=== PATIENT | female | born 1950 | race Caucasian/White ===

== ENCOUNTER 2024-03-18 13:15 | Outpatient (AMB) | payer MEDICARE, OTHER, SELFPAY ==
--- NOTE | 2024-03-18 13:20 | A.OFFVIS_ITS ---
Vital Signs 03/18/24 13:24 Height 5 ft 5 in Weight 237 lb BMI 39.4 BP 130/82 Blood Pressure Location Rt brachial Position Sitting Intake Visit Reasons: ENP-Suspected Sleep Apnea Intake Note: Patient presents for suspected MYLES. Patient does not have any MYLES symptoms, daughter thinks she should have test done due to family history of apnea Allergies doxycycline [From Vibramycin] Allergy (Unknown, Verified 03/18/24 13:25) Unknown Medication List - Last Reconciled 03/18/24 by ALLYSON Diamond aspirin 81 mg PO DAILY atenolol mg PO atorvastatin mg PO clonidine HCl mg PO clopidogrel mg PO irbesartan mg PO sertraline 25 mg PO DAILY tramadol 50 mg PO TID PRN warfarin mg PO HPI Comments Details: 74-yr-old female presents for new in-person patient visit for sleep consultation. Pt is accompanied by her dtr, Bianca. PMH lacunar stroke, atrial fibrillation on Coumadin, prior DVT, type 2 diabetes, hypertension, hyperlipidemia and obesity Patient states she was told she should have a sleep study, as she has a h/o multiple small strokes between end of Apr 2024 and June 2024. Per dtr, strokes were thought to be d/t atherosclerosis. She has h/o a-fib, and is on coumadin. She was having episodes of falling, speech changes. Since she has had some cognitive difficulties, occasional sundowning symptoms in the evening- asks her dtr where her dtr is, gait changes, worsening of overactive bladder s/s, feeling disoriented when she takes a shirt or dress up over her head. Pt did have in-pt rehab and home PT. Prior to this period, she was Ind, lived in a 3rd floor walk-up apartment which she managed well. Dtr notes in while hospitalized, she was noted to have nocturnal hypoxemia while sleeping. She does endorse snoring, gasping, apneas, nocturia, daytime sleepiness, dry mouth at times. Denies dysphagia, muscle tightness. chest pain, parasomnias, GERD, am headaches, leg cramps, peripheral numbness/tingling. She is f/b [facility]. 06/08/2023, IMPRESSION: 1. 5 mm acute lacune in the right inferolateral cerebellar hemisphere. 2. A possible tiny area of new ischemia at the superior margin of an old right cerebellar infarct. 3. Persistent diffusion abnormality associated with the central pontine infarct demonstrated on 05/28/2023. 4. Old left frontal and right cerebellar infarcts. Moderate white matter abnormality and numerous basal ganglia lacunes and thalamic lacunes are unchanged from 05/28/2023. 06/08/2023, CT Angio Head Hyperacute Stroke, CT Angio Neck Hyperacute Stroke: IMPRESSION: This is a preliminary report pending outside 3D reformatted images. 1. There is new cut off of the proximal left superior cerebellar artery. 2. Otherwise, there is no significant change from CTA dated 05/28/2023. 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 06/06/2023, Echocardiogram: Summary The left ventricle is normal in size and wall thickness. Overall left ventricular systolic function is normal. LVEF visually estimated at 60-65%. There are no definite wall motion abnormalities. Unable to assess diastolic function due to atrial fibrillation . Right ventricular size and systolic function appear grossly normal. The left atrium is mildly dilated. The right atrium is dilated. There is mild aortic stenosis. Normal CVP estimate. Unable to estimate PASP. Sleep questionnaire: Have you ever been diagnosed with a sleep disorder? no Have you ever had a sleep study in the past? no Have you ever been treated for a sleep disorder? no [facility] Medical History (Updated 03/18/24 @ 18:33 by ALLYSON Diamond) Chronic venous insufficiency Depression Tuberculosis Pneumonia Allergies Migraine HTN (hypertension) Diabetes Hypercholesteremia Arthritis Anemia Surgical History (Updated 03/18/24 @ 13:28 by FLOR Guadalupe) History of intestinal surgery H/O hernia repair H/O section Family History (Updated 03/18/24 @ 13:29 by FLOR Guadalupe) Father HTN (hypertension) Mother HTN (hypertension) Diabetes Social History (Updated 03/18/24 @ 13:28 by FLOR Guadalupe) Alcohol intake: never Patient Tobacco Use Status: Never used Tobacco Physical Exam Vital Signs: Last Vital Signs BP 130/82 03/18/24 13:24 BMI result Body Mass Index 39.4 Const General: no acute distress HEENT Other: Mallampati stage 4 Resp Effort & Inspection: normal respiratory effort and able to speak in complete sentences Auscultation: clear to auscultation bilaterally Cardio Rhythm: abnormal rhythm Neuro Other: A&O x's 3 w/ STM lapses. Mild left facial weakness Mild dysconjugate gaze. Mild LUE postural tremor on pronator drift testing. No pronator drfit. Mild LUE tightness. Stands slowly, decreased arm swing, slight left shoulder droop, short steps, multiple steps to turn. Cranial nerves: Yes Nystagmus not present, Yes Midline tongue present, Yes Ability to bilaterally rotate head present and Yes Ability to bilaterally elevate shoulders present Motor exam (neuro): 5/5 motor strength present throughout Deep tendon reflexes (DTR's): Right triceps reflex intensity grade: 2+, Left triceps reflex intensity grade: 3+, Rt Biceps (C5, C6): 2+, Left biceps reflex intensity grade: 3+, Right brachioradialis reflex intensity grade: 2+, Left brachioradialis reflex intensity grade: 3+, Right patellar reflex intensity grade: 2+ and Left patellar reflex intensity grade: 3+ Psych Appearance: grossly normal Mental Status: mental status grossly normal Speech and movement: Clear speech present Affect: normal affect Attitude: cooperative Assessment & Plan Assessment & Plan (1) Sleep difficulties: Code(s): G47.9 - Sleep disorder, unspecified Category: Medical (2) Snoring: Code(s): R06.83 - Snoring Category: Medical (3) History of multiple strokes: Code(s): Z86.73 - Personal history of transient ischemic attack (TIA), and cerebral infarction without residual deficits Category: Medical (4) Cognitive impairment: Code(s): R41.89 - Other symptoms and signs involving cognitive functions and awareness Category: Medical (5) Obesity (BMI 35.0-39.9 without comorbidity): Code(s): E66.9 - Obesity, unspecified Category: Medical (6) Hypersomnia: Code(s): G47.10 - Hypersomnia, unspecified Category: Medical Plan Pt is advised to undergo sleep study to assess for sleep apnea: in-lab PSG d/t cognitive impairment, a-fib, HTN, h/o mx strokes. EEG to assess for epileptic etiologies of cognitive s/s. BILINGUAL TRAINER eval & tx for cognitive tx. Encouraged pt to do PT exercises regularly. Continue anti-HTN, statin, and warfarin tx- BP at goal, however HR is irregular- pt states this is her baseline, will request recent labs, PCP notes, [facility] notes. Future considerations- referring back to PT. Will follow-up upon review of above and patient to follow-up in clinic in 6 months or sooner prn. Pt seen in c/w Dr Adri Quintanilla. Orders: Orders EEG electroencephalogram Today R41.89 - Other symptoms and signs involving cognitive functions and awareness, Z86.73 - Personal history of transient ische donell attack (TIA), and cerebral infarction without residual deficits RT PSG in-lab sleep study Today G47.10 - Hypersomnia, unspecified, G47.9 - Sleep disorder, unspecified, R06.83 - Snoring, R41.89 - Other symptoms and signs involving cognitive functions and awareness, Z86.73 - Personal history of transient ischemic attack (TIA), and cerebral infarction without residual d eficits Referrals Speech and Hearing Referral R41.89 - Other symptoms and signs involving cognitive functions and awareness, Z86.73 - Personal history of transient ischemic attack (TIA), and cerebral infarction without residual deficits Coding Level of Care Code New Pt Level 4 (52480) Diagnoses Sleep difficulties G47.9 Snoring R06.83 History of multiple strokes Z86.73 Cognitive impairment R41.89 Obesity (BMI 35.0-39.9 without comorbidity) E66.9 Hypersomnia G47.10 [place] Sleepiness Scale Questions Sitting and reading: moderate chance of dozing Watching TV: moderate chance of dozing Sitting inactive in a theater, movie etc.: moderate chance of dozing As a passenger in a car for an hour without break: slight chance of dozing Lying down in the afternoon when circumstances permit: moderate chance of dozing Sitting and talking to someone: would never doze Sitting quietly after lunch without alcohol: moderate chance of dozing In a car, while stopped for a few minutes in the traffic: would never doze ESS < 10: normal, ESS > 12: pathologic: 11
[2024-03-18 13:24] VITALS: BP 130/82; BMI 39.4
== END 2024-03-18 14:33 | disposition home or self-care (01) ==
PROVIDERS: Visit Provider Nurse Practitioner Family
DX: G47.9 Sleep disorder, unspecified (principal); R06.83 Snoring; Z86.73 Personal history of transient ischemic attack (TIA), and cerebral infarction without residual deficits; R41.89 Other symptoms and signs involving cognitive functions and awareness; E66.9 Obesity, unspecified; G47.10 Hypersomnia, unspecified
CPT/HCPCS: 99204

== ENCOUNTER → 2024-03-18 13:15 | Outpatient (BNVA) | payer MEDICARE, OTHER, SELFPAY | PROVIDERS: Visit Provider Nurse Practitioner Family | DX: G47.9 Sleep disorder, unspecified (principal); G47.10 Hypersomnia, unspecified; R06.83 Snoring; R41.89 Other symptoms and signs involving cognitive functions and awareness; E66.9 Obesity, unspecified; Z68.39 Body mass index [BMI] 39.0-39.9, adult; Z86.73 Personal history of transient ischemic attack (TIA), and cerebral infarction without residual deficits | CPT/HCPCS: 99202 ==

== ENCOUNTER → 2024-04-07 20:30 | Outpatient (REF) | payer MEDICARE, OTHER, SELFPAY | LOC: HO.SL 20:30 | PROVIDERS: PCP Internal Medicine; Visit Provider Nurse Practitioner Family | DX: G47.10 Hypersomnia, unspecified (principal); R41.89 Other symptoms and signs involving cognitive functions and awareness; Z86.73 Personal history of transient ischemic attack (TIA), and cerebral infarction without residual deficits; R06.83 Snoring; G47.9 Sleep disorder, unspecified | CPT/HCPCS: 95810 ==

== ENCOUNTER → 2024-04-07 22:07 | Outpatient (BNV) | payer MEDICARE, OTHER, SELFPAY | PROVIDERS: PCP Internal Medicine; Visit Provider Psychiatry & Neurology Neurology | DX: G47.33 Obstructive sleep apnea (adult) (pediatric) (principal) | CPT/HCPCS: 95810 ==

== ENCOUNTER 2024-09-17 10:09 | Outpatient (AMB) | payer MEDICARE, OTHER, SELFPAY ==
--- NOTE | 2024-09-17 10:24 | A.OFFVIS_ITS ---
Vital Signs 09/17/24 10:26 Height 5 ft 5 in Weight 238 lb BMI 39.6 BP 140/80 H Blood Pressure Location Rt brachial Pulse 72 Pulse Source Pulse Oximeter Pulse Oximetry (%) 97 Oxygen Delivery Method Room Air Intake Visit Reasons: Follow up Intake Note: Patient presents follow up for cognitive/sleep. Sleep study done on 04/07/24. 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 Patient is accompanied by her daughter Bianca. Interval 04/07/2024, in-lab PSG sleep study showed mild obstructive sleep apnea- AHI 12/hr, REM AHI 31/hr, O2 jessie 70%, w/ SpO2 < 88% x's 6 minutes, average SpO2 92%. PLMS 6/hr and PLMS arousal index 0.2 per hour. There were snoring and snorts noted during the sleep study. [facility], however patient and daughter have not heard from them yet. Daughter thinks they may be calling the wrong number. Has not had jair EEG yet- there was a scheduling issue at the hospital. Speech therapy department had reach out to patient, however patient declined speech therapy services at the time. Pt has had some episodes of forgetfulness. May occasionally ask where her dtr is- where her dtr is. This confusion seems to occur more in the evening. Pt may feel off-balance when she takes her shirt off over her head or closes her eyes. States her hands and her feet are often cold, though denies skin color changes. Prone to BLE swelling. Typically wears compression socks d/t h/o DVT. She states she can feel the floor when walking. She states her mobility fluctuates through the day- slow in the am, then imrpoves, but then worsens as the progresses. She has more difficulty with pivoting. Has less difficulty walking forward. Daughter is trying to have patient do home PT exercises 03/18/24 Initial HPI: 74-yr-old female presents for new in-person patient visit for sleep consultation. Pt is accompanied by her dtr, Bianca. PMH lacunar stroke, atrial fibrillation on Coumadin, prior DVT, type 2 diabetes, hypertension, hyperlipidemia and obesity Patient states she was told she should have a sleep study, as she has a h/o multiple small strokes between end of Apr 2024 and June 2024. Per dtr, strokes were thought to be d/t atherosclerosis. She has h/o a-fib, and is on coumadin. She was having episodes of falling, speech changes. Since she has had some cognitive difficulties, occasional sundowning symptoms in the evening- asks her dtr where her dtr is, gait changes, worsening of overactive bladder s/s, feeling disoriented when she takes a shirt or dress up over her head. Pt did have in-pt rehab and home PT. Prior to this period, she was Ind, lived in a 3rd floor walk-up apartment which she managed well. Dtr notes in while hospitalized, she was noted to have nocturnal hypoxemia while sleeping. She does endorse snoring, gasping, apneas, nocturia, daytime sleepiness, dry mouth at times. Denies dysphagia, muscle tightness. chest pain, parasomnias, GERD, am headaches, leg cramps, peripheral numbness/tingling. [facility], IMPRESSION: 1. 5 mm acute lacune in the right inferolateral cerebellar hemisphere. 2. A possible tiny area of new ischemia at the superior margin of an old right cerebellar infarct. 3. Persistent diffusion abnormality associated with the central pontine infarct demonstrated on 05/28/2023. 4. Old left frontal and right cerebellar infarcts. Moderate white matter abnormality and numerous basal ganglia lacunes and thalamic lacunes are unchanged from 05/28/2023. 06/08/2023, CT Angio Head Hyperacute Stroke, CT Angio Neck Hyperacute Stroke: IMPRESSION: This is a preliminary report pending outside 3D reformatted images. 1. There is new cut off of the proximal left superior cerebellar artery. 2. Otherwise, there is no significant change from CTA dated 05/28/2023. 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 06/06/2023, Echocardiogram: Summary The left ventricle is normal in size and wall thickness. Overall left ventricular systolic function is normal. LVEF visually estimated at 60-65%. There are no definite wall motion abnormalities. Unable to assess diastolic function due to atrial fibrillation . Right ventricular size and systolic function appear grossly normal. The left atrium is mildly dilated. The right atrium is dilated. There is mild aortic stenosis. Normal CVP estimate. Unable to estimate PASP. Sleep questionnaire: Have you ever been diagnosed with a sleep disorder? no Have you ever had a sleep study in the past? no Have you ever been treated for a sleep disorder? no [facility] Medical History (Updated 09/17/24 @ 11:42 by ALLYSON Diamond) Chronic venous insufficiency Depression Tuberculosis Pneumonia Allergies Migraine HTN (hypertension) Diabetes Hypercholesteremia Arthritis Anemia Surgical History History of intestinal surgery H/O hernia repair H/O section Family History Father HTN (hypertension) Mother HTN (hypertension) Diabetes Social History Alcohol intake: never Patient Tobacco Use Status: Never used Tobacco Physical Exam Vital Signs: Last Vital Signs Pulse 72 09/17/24 10:26 BP 140/80 H 09/17/24 10:26 Pulse Ox 97 09/17/24 10:26 Oxygen Delivery Method Room Air 09/17/24 10:26 BMI result Body Mass Index 39.6 Const General: no acute distress HEENT Other: Mallampati stage 4 Resp Effort & Inspection: normal respiratory effort and able to speak in complete sentences Neuro Other: A&O x's 3 w/ STM lapses. Mild left facial weakness- improved Mild dysconjugate gaze. Stands slowly, slight left shoulder droop, short steps, multiple steps to turn, steady with a walker. Psych Appearance: grossly normal Mental Status: mental status grossly normal Speech and movement: Clear speech present Affect: normal affect Attitude: cooperative Assessment & Plan Assessment & Plan (1) History of multiple strokes: Code(s): Z86.73 - Personal history of transient ischemic attack (TIA), and cerebral infarction without residual deficits Category: Medical (2) Obstructive sleep apnea: Code(s): G47.33 - Obstructive sleep apnea (adult) (pediatric) Category: Medical (3) Sleep difficulties: Code(s): G47.9 - Sleep disorder, unspecified Category: Medical (4) Cognitive impairment: Code(s): R41.89 - Other symptoms and signs involving cognitive functions and awareness Category: Medical Plan Reviewed In-lab PSG results which showed mild obstructive sleep apnea with increased severity in REM sleep, O2 jessie 78%, with SpO2 under 88% for 6 minutes of study time. Average SpO2 92%. * Patient is advised to start APAP 5-20 cm H2O nightly greater than 4 hours. On what * [facility] information given to patient/daughter so they can call to set up appointment to receive CPAP equipment and education and mask fitting. * Discussed the importance of using CPAP regularly greater than 4 hours nightly to have best effect Patient is again advised to undergo EEG to assess for epileptic etiologies of cognitive s/s. Hold PAD CUTTER eval & tx order-patient declined Encouraged patient to continue to do home PT exercises regularly. Continue anti-HTN, statin, and warfarin tx- BP at goal. Follow-up with [facility] as scheduled. Monitor cognition- future consideration neuropsychiatric eval, trial of memantine. Future considerations- referring back to PT. Will follow-up upon review of above and patient to follow-up in clinic in 6 months or sooner prn. Coding Level of Care Code Est Pt Level 4 (58009) Diagnoses History of multiple strokes Z86.73 Obstructive sleep apnea G47.33 Sleep difficulties G47.9 Cognitive impairment R41.89
[2024-09-17 10:26] VITALS: BP 140/80; PULSE 72; O2SAT 97; BMI 39.6
--- OUTSIDE RECORDS SUMMARY | 2024-09-17 11:48 | XMS_ITS | Continuity of Care Document ---
Author Organization [facility] Address [address] [place] [address] Phone Care Team Providers Care Industrial Millwright Name Role Phone Nurse, Nurse Unavailable Unavailable Allergies, Adverse Reactions, Alerts Substance Reaction Status Criticality erythromycin base Active No Informa tion iodine Active No Information tetracycline Active No Information Medications Medication Instructions Dosage Effective Dates (start - stop) Status Comments Mounjaro 5 mg/0.5 mL subcutaneous pen injector inject (5MG) by subcutaneous route every week 5 MG - Active Tresiba FlexTouch U-100 insulin 100 unit/mL (3 mL) subcutaneous pen ADMINISTER 40 UNITS UNDER THE SKIN TWICE DAILY - Active aspirin 81 mg tablet,delayed release take 1 tablet by oral route every day 81 MG - Active atorvastatin 40 mg tablet take 1 tablet by oral route every day 40 MG - Active Jardiance 25 mg tablet take 1 tablet by oral route every day in the morning 25 MG - Active lisinopril 20 mg tablet TAKE 1 TABLET BY MOUTH EVERY DAY - Active omeprazole 40 mg capsule,delayed release TAKE 1 CAPSULE BY MOUTH EVERY DAY BEFORE A MEAL - Active Accu-Chek Tawana Plus test strips USE DIRECTED THREE TIMES DAILY - Active levothyroxine 100 mcg tablet TAKE 1 TABLET BY MOUTH EVERY DAY - Active DIPHENOXYLATE/ATROPINE 2.5MG TABS TAKE 2 TABLETS BY MOUTH FOUR TIMES DAILY NEEDED - Active Easy Touch Safety Lancets 32 gauge To check random glucose 3 times daily insulin dependent DX: E11.65 - Active albuterol sulfate HFA 90 mcg/actuation aerosol inhaler inhale 2 puff by inhalation route every 4 - 6 hours as needed 180 MCG - Active naloxone 4 mg/actuation nasal spray spray 0.1 milliliter by intranasal route in 1 nostril may repeat dose every 2-3 minutes as needed alternating nostrils with each dose 4 MG - Active hydrocodone 10 mg-acetaminophen 325 mg tablet take 0.5 to 1 tablet by oral route every 4 - 6 hours as needed for pain - Active gabapentin 300 mg capsule take 1 capsule by oral route 3 times every day 300 MG - Active Imodium A-D 2 mg tablet take 2 tablet by oral route after 1st loose stool and 1 tablet (2 mg) after each next bowel movement; do not exceed 16 mg in 24hrs 4 MG - Active magnesium gluconate 27 mg magnesium (500 mg) tablet two times a day for 14 days - Active duloxetine 60 mg capsule,delayed release take 1 capsule by oral route every day 60 MG - Active Procedures Procedure Date GLYCATED HEMOGLOBIN TEST SYST BP GE 130 - 139MM HG DIAST BP < 80 MM HG OFFICE/OUTPATIENT VISIT, EST GLYCATED HEMOGLOBIN TEST OFFICE/OUTPATIENT VISIT, EST Covid 19 Antigen Test Rapid Flu Test RAPID STREP [facility] 024 GLYCATED HEMOGLOBIN TEST SYST BP >= 140 MM HG6 IT DIAST BP 80-89 MM HG OFFICE/OUTPATIENT VISIT, EST Covid 19 Antigen Test OFFICE/OUTPATIENT VISIT, EST [facility] 023 OFFICE/OUTPATIENT VISIT EST [facility] 023 Covid 19 Antigen Test Rapid Flu Test RAPID STREP GLYCATED HEMOGLOBIN TEST URINALYSIS NONAUTO W/O SCOPE OFFICE/OUTPATIENT VISIT, EST Moderna Covid 19 Vacc Bivalent 18 And Ol dulce Adm Moderna [id number] And Older [address] ter Admin influenza virus vac FLU VACC PRSV FREE INC ANTIG Annual Wellness Visit Subsequent 2021 Covid 19 Antigen Test Rapid Flu Test [facility] 022 OFFICE/OUTPATIENT VISIT EST [facility] 022 GLYCATED HEMOGLOBIN TEST OFFICE/OUTPATIENT VISIT, EST SARSCOV2 VAC 50MCG/0.25ML IM Moderna COVID-19 Dose 3 [facility] 022 ASSAY, GLUCOSE, BLOOD QUANT GLYCATED HEMOGLOBIN TEST URINALYSIS NONAUTO W/O SCOPE OFFICE/OUTPATIENT VISIT EST OFFICE/OUTPATIENT VISIT, EST [facility] 022 OFFICE/OUTPATIENT VISIT EST [facility] 021 GLYCATED HEMOGLOBIN TEST URINALYSIS NONAUTO W/O SCOPE OFFICE/OUTPATIENT VISIT, EST IMMUNIZATION ADMIN TDAP VACCINE >7 IM Annual Wellness Initial Visit OFFICE/OUTPATIENT VISIT EST [facility] 021 SARSCOV2 VAC 100MCG/0.5ML IM ADM SARSCOV2 100MCG/0.5ML2ND OFFICE/OUTPATIENT VISIT EST Telephone/Video Encounter Established Ok OFFICE/OUTPATIENT VISIT EST SARSCOV2 VAC 100MCG/0.5ML IM ADM SARSCOV2 100MCG/0.5ML1ST OFFICE/OUTPATIENT VISIT EST ASSAY, GLUCOSE, BLOOD QUANT OFFICE/OUTPATIENT VISIT, EST OFFICE/OUTPATIENT VISIT, EST OFFICE/OUTPATIENT VISIT, EST OFFICE/OUTPATIENT VISIT, EST ELECTROCARDIOGRAM, COMPLETE AIRWAY INHALATION TREATMENT REMOTE DX RETINAL IMAGING GLYCATED HEMOGLOBIN TEST OFFICE/OUTPATIENT VISIT, EST Diabetic Management Program, OFFICE/OUTPATIENT VISIT, EST ASSAY, GLUCOSE, BLOOD QUANT OFFICE/OUTPATIENT VISIT, EST OFFICE/OUTPATIENT VISIT, EST OFFICE/OUTPATIENT VISIT, EST URINALYSIS NONAUTO W/O SCOPE OFFICE/OUTPATIENT VISIT, EST ASSAY, GLUCOSE, BLOOD QUANT OFFICE/OUTPATIENT VISIT, NEW At Least 1 Prescription Sent Electronica lly Advance Directives Directive Yes / No Effective Date File Name No Information Encounters Encounter Description Practice Location Reason(s) For Visit Diagnoses Date Provider Providers Copied on Encounter [facility], [address] [place] [address], [id number], tel:[phone] Main [facility] No Information 5 Nurse Nurse. [address] [place], [address]. tel:[phone] OFFICE/OUTPA TIENT VISIT, [facility], [address] [place] [address], [id number], tel:[phone] Main Clinic cc (chief complaint)aly betes (chief complaint) Body mass index [BMI] 23.0-23.9, adultType 2 diabetes mellitus with hyperglycemia, with long-term current use of insulinVitamin D deficiencyHypo thyroidism (acquired)Esse ntial hypertensionEn counter for examination of blood pressure without abnormal findings 5 Bong Salgado. [address] [place], [place], [id number], [place]. tel:[phone] OFFICE/OUTPA TIENT VISIT, [facility], [address] [place] [address], [id number], [place] tel:[phone] Main Clinic diabetes (chief complaint)hyp ertension (chief complaint)mem ory impairment (chief complaint) Body mass index [BMI] 24.0-24.9, adultBlood Pressure ScreeningType 2 diabetes mellitus with hyperglycemia, with long-term current use of insulinHypomag nesemiaEssenti al hypertensionVi tamin D deficiencyHypo thyroidism (acquired) 4 Bong Salgado. [address] [place], [place], [id number], [place]. tel:[phone] [facility], [address] [place] [address], [id number], [place] tel:[phone] Mobile Van I flulike symptoms (chief complaint) COVID-19Influe nza BBlood Pressure Screening 4 Carey Wheeler. [address] [place], [address], [place]. tel:[phone] OFFICE/OUTPA TIENT VISIT, [facility], [address] [place] [address], [id number], [place] tel:[phone] [facility] Diabetes (chief complaint)fal l (chief complaint) Type 2 diabetes mellitus with hyperglycemia, with long-term current use of insulinEssenti al hypertensionVi tamin D deficiencyBloo d Pressure ScreeningAcqui red hypothyroidism Costochondral chest pain 3 [place] Salgado. [address] [place], [place], [id number], [place]. tel:[phone] OFFICE/OUTPA TIENT VISIT, [facility], [address] [place], [place], [id number], [place] tel:[phone] Main [facility] headache (chief complaint) Irritable bowel syndrome with both constipation and diarrheaEncoun ter for screening for viral diseaseType 2 diabetes mellitus with hyperglycemia, with long-term current use of insulinEssenti al hypertensionVi tamin D deficiencyAcqu ired hypothyroidism Mar-0 3 Bong Salgado. [address] [place], [place], [id number], [place]. tel:[phone] OFFICE/OUTPA TIENT VISIT [facility], [facility] [place], [place], [id number], [place] tel:[phone] Main Clinic sore throat (chief complaint) Screening for viral diseaseCOVID-1 9 3 Bong Salgado. [address] [place], [place], [id number], [place]. tel:[phone] OFFICE/OUTPA TIENT VISIT, [facility], [address] [place] [address], [id number], [place] tel:[phone] Main Clinic Follow Up of med refills (chief complaint)aly betes (chief complaint)fel l (chief complaint) Frequent fallsType 2 diabetes mellitus with hyperglycemia, with long-term current use of insulin Apr- 2 Bong Salgado. [address] [place] [address], [place], [id number], [place]. tel:[phone] [facility], [address] [place] [address], [id number], [place] tel:[phone] [facility] 4th covid vacc (chief complaint) No Information 2 Nurse Nurse. [address] [place], [address]. tel:[phone] [facility], [address] [place] [address], [id number], tel:[phone] [facility] Medicare preventive (chief complaint)spe cialists (chief complaint) Type 2 diabetes mellitus with hyperglycemia, with long-term current use of insulinLong term (current) use of insulinIrritab le bowel syndrome with both constipation and diarrheaFreque nt fallsMemory impairment of gradual onsetMild nonproliferati ve diabetic retinopathy of left eye without macular edema associated with type 2 diabetes mellitusEssent ial hypertensionCh ronic fatigueAcquire d hypothyroidism Vitamin D deficiencyStat us post left hip replacementHyp omagnesemiaMed icare annual wellness visit, subsequentGene ralized anxiety disorderMixed hyperlipidemia 2 Bong Salgado. [address] [place], [place], [id number], [place]. tel:[phone] [facility], [address] [place] [address], [id number], tel:[phone] [place] cc (chief complaint)hea dache and body aches (chief complaint) Encounter for screening for other viral diseasesGenera lized body aches 2 Suhas Conde. [address] [place], [place], [id number], [place]. tel:[phone] OFFICE/OUTPA TIENT VISIT EST [facility], [address] [place] [address], [id number], tel:[phone] Main [facility] diarrhea (chief complaint) Type 2 diabetes mellitus with hyperglycemia, with long-term current use of insulinEssenti al (primary) hypertensionDi zzinessScreeni ng for viral disease 2 Bong Salgado. [address] [place], [place], [id number], [place]. tel:[phone] [facility], [address] [place] [address], [id number], [place] tel:[phone] [place] cc (chief complaint)dys uria (chief complaint) DysuriaEncount er for screening for other viral diseases 2 Suhas Conde. [address] [place], [place], [id number], [place]. tel:[phone] OFFICE/OUTPA TIENT VISIT, [facility], [address] [place] [address], [id number], tel:[phone] [facility] hospital follow up (chief complaint)aly dallas (chief complaint) Status post left hip replacementTyp e 2 diabetes mellitus with hyperglycemia, with long-term current use of insulinLong term (current) use of insulinHypomag nesemiaAcquire d hypothyroidism 2 Bong Madelynia. [address] [place], [place], [id number], [place]. tel:[phone] [facility], [address] [place] [address], [id number], tel:[phone] [facility] Moderna booster (chief complaint) No Information 2 Nurse Nurse. [address] [place] [address], [facility]. tel:[phone] [facility], [address] [place] [address], [id number], [place] tel:[phone] [facility] cc (chief complaint) Type 2 diabetes mellitus with hyperglycemia 2 Ok Coyle. [address] [place], [address], [place]. tel:[phone] OFFICE/OUTPA TIENT VISIT [facility], [address] [place] [address], [id number], [place] tel:[phone] [facility] Diabetes (follow up) (chief complaint) Body mass index [BMI] 19.9 or less, adultDietary counseling and surveillanceTy pe 2 diabetes mellitus with hyperglycemia 2 Everton Breen. [address] [place], [address], [place]. tel:[phone] OFFICE/OUTPA TIENT VISIT, [facility], [address] [place] [address], [id number], [place] tel:[phone] [facility] diabetes (chief complaint)hyp ertension (chief complaint) Type 2 diabetes mellitus with hyperglycemia, with long-term current use of insulin 2 Bong Salgado. [address] [place], [place], [id number], [place]. tel:[phone] OFFICE/OUTPA TIENT VISIT [facility], [address] [place] [address], [id number], tel:[phone] [facility] diabetes (chief complaint) Type 2 diabetes mellitus with hyperglycemia, with long-term current use of insulin 1 Bong Salgado. [address] [place], [place], [id number], [place]. tel:[phone] [facility], [address] [place] [address], [id number], tel:[phone] Main [facility] generalized weakness (chief complaint) Screening, deficiency anemia, ironVitamin D deficiencyRout ine lab drawHypothyroi dism (acquired)Meat Grader sven fatigueHyperli pidemia, unspecified hyperlipidemia type 1 Roblero Tracy. [address] [place], [place], [id number], [place]. tel:[phone] OFFICE/OUTPA TIENT VISIT, [facility], [address] [place] [address], [id number], tel:[phone] [facility] Diabetes (chief complaint)Fol low Up of Hypertension (chief complaint)pt is due for (chief complaint)aly rrhea (chief complaint) Type 2 diabetes mellitus with hyperglycemia, with long-term current use of insulinFunctio nal diarrheaGERD without esophagitisBur gloria with urinationScree gloria for colon cancerHypothyr oidism (acquired)Esse ntial (primary) hypertension 1 Bong Salgado. [address] [place], [place], [id number], [place]. tel:[phone] [facility], [address] [place] [address], [id number], [place] tel:[phone] [facility] Medicare preventive (chief complaint)scr eenings (chief complaint) Screening for osteoporosisMe dicmer[facility] annual [facility], Huang carroll (primary) hypertensionTy pe 2 diabetes mellitus with hyperglycemia, with long-term current use of insulinIrritab le bowel syndrome with both constipation and diarrheaFreque nt fallsMemory impairment of gradual onsetMild nonproliferati ve diabetic retinopathy of left eye without macular edema associated with type 2 diabetes mellitus 1 [place] Naomi. [address] [place], [place], [id number], [place]. tel:[phone] OFFICE/OUTPA TIENT VISIT [facility], [address] [place] [address], [id number], [place] tel:[phone] Main Clinic diabetes (chief complaint) Essential hypertensionTy pe 2 diabetes mellitus with hyperglycemia, with long-term current use of insulin Jul- 1 Bong Salgado. [address] [place], [place], [id number], [place]. tel:[phone] [facility], [address] [place] [address], [id number], [place] tel:[phone] [facility] 2 covid vaccine (chief complaint) No Information 1 Nurse Nurse. [address] [place], [address]. tel:[phone] OFFICE/OUTPA TIENT VISIT [facility], [address] [place] [address], [id number], [place] tel:[phone] [facility] diabetes (chief complaint)hyp ertension (chief complaint) Type 2 diabetes mellitus with hyperglycemia, with long-term current use of insulin Jul- 1 Bong Naomi. [address] [place], [place], [id number], [place]. tel:[phone] OFFICE/OUTPA TIENT VISIT [facility], [address] [place] [address], [id number], [place] tel:[phone] Main [facility] Follow up on lab test(s) (chief complaint)pt is due for (chief complaint) Type 2 diabetes mellitus with hyperglycemia, with long-term current use of insulinHypothy roidism (acquired)Esse ntial hypertension 1 Bong Salgado. [address] [place], [place], [id number], [place]. tel:[phone] [facility], [address] [place] [address], [id number], [place] tel:[phone] [facility] No Information 1 Nurse Nurse. [address] [place], [address]. tel:[phone] OFFICE/OUTPA TIENT VISIT [facility], [address] [place] [address], [id number], [place] tel:[phone] [facility] Follow Up of Diabetes (chief complaint)pt is due for (chief complaint) Type 2 diabetes mellitus with hyperglycemia, with long-term current use of insulin 1 Bong Salgado. [address] [place], [place], [id number], [place]. tel:[phone] OFFICE/OUTPA TIENT VISIT, [facility], [address] [place] [address], [id number], [place] tel:[phone] [facility] Follow Up of Diabetes (chief complaint)Fol low Up of Hypertension (chief complaint)fal ling (chief complaint) Type 2 diabetes mellitus with hyperglycemia, with long-term current use of insulinFrequen t fallsHypothyro idism (acquired)Hype rlipidemia, unspecified hyperlipidemia typeEssential hypertension 1 Bong Salgado. [address] [place], [place], [id number], [place]. 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 [address] [place] [address], [id number], [place]. tel:[phone] OFFICE/OUTPA TIENT VISIT, [facility], [address] [place] [address], [id number], tel:[phone] [facility] Diabetes (chief complaint)Dieduin ziness (chief complaint) Type 2 diabetes mellitus with hyperglycemia, with long-term current use of insulinDizzine ss 0 Adam Ayala. [address] [place] [address], [id number], [place]. tel:[phone] OFFICE/OUTPA TIENT VISIT, [facility], [address] [place] [address], [id number], [place] tel:[phone] [facility] Diabetes (chief complaint)Thy roid problems (chief complaint) Hyperthyroidis mFrequent fallsShakiness Type 2 diabetes mellitus with other specified complication, with long-term current use of insulinMemory lossScreening- pulmonary TBScreening for colorectal cancer 0 Adam Ayala. [address] [place] [address], [id number], [place]. tel:[phone] OFFICE/OUTPA TIENT VISIT, [facility], [address] [place] [address], [id number], [place] tel:[phone] [facility] cough (chief complaint)Hea dache (chief complaint) Acute bronchitis due to other specified organismsAcute nasopharyngiti sType 2 diabetes mellitus with hyperglycemia, with long-term current use of insulinTachyca rdia 9 Shekhar Godinez. [facility] [place], [place], [id number], [place]. tel:[phone] OFFICE/OUTPA TIENT VISIT, [facility], [facility] [place], [place], [id number], [place] tel:[phone] [facility]/ Diabetes (chief complaint) Type 2 diabetes mellitus with hyperglycemia, with long-term current use of insulinFacial asymmetryNonin tractable episodic headache, unspecified headache type [facility] Jamie. [address] [place], [place], [id number], [place]. tel:[phone] [facility], [address] [place] [address], [id number], [place] tel:[phone] [facility] Diabetes Education (chief complaint) Type 2 diabetes mellitus with hyperglycemia, with long-term current use of insulin Renny Caicedo. [address] [place] [address], [id number] [place] [address], [address]. OFFICE/OUTPA TIENT VISIT, [facility], [facility] [place], [place], [id number], [place] tel:[phone] [facility] Diabetes (chief complaint) Type 2 diabetes mellitus with hyperglycemia, with long-term current use of insulinHistory of skin cancer [facility] Jamie. [address] [place], [place], [id number], [place]. tel:[phone] OFFICE/OUTPA TIENT VISIT, [facility], [address] [place] [address], [id number], [place] tel:[phone] [place] Follow Up of hypertension (chief complaint)aly betes (chief complaint) Type 2 diabetes mellitus with hyperglycemia, with long-term current use of insulinEssenti al hypertension 9 [facility] [address] [place], [place], [id number], [place]. tel:[phone] OFFICE/OUTPA TIENT VISIT, [facility], [address] [place] [address], [id number], tel:[phone] [place] Follow Up of lab results (chief complaint) Hyperthyroidis mVitamin D deficiencyType 2 diabetes mellitus with hyperglycemia, with long-term current use of insulinEssenti al hypertension 9 [facility] Jamie. [address] [place], [place], [id number], [place]. tel:[phone] OFFICE/OUTPA TIENT VISIT, [facility], [address] [place] [address], [id number], [place] tel:[phone] [facility] est. care (chief complaint) Screening, deficiency anemia, ironEncounter for vitamin deficiency screeningHyper thyroidismType 2 diabetes mellitus with hyperglycemia, with long-term current use of insulinHyperli pidemia, unspecified hyperlipidemia typeRight upper quadrant painAnxiety 9 [facility] Jamie. [address] [place], [place], [id number], [place]. tel:[phone] OFFICE/OUTPA TIENT VISIT, [facility], [address] [place] [address], [id number], tel:[phone] [facility] poss yeast inf (chief complaint)pos s prolapse (chief complaint) DysuriaUncontr olled diabetes mellitus 6 Doug Brianna. [address] [facility] [place], [id number], [place]. tel:[phone] OFFICE/OUTPA TIENT VISIT, [facility], [address] [place] [address], [id number], tel:[phone] Main [facility] CUP on moles on breast (chief complaint) Neoplasm of uncertain behavior of skinUnspecifie d disorder of skin and subcutaneous tissueAcute cystitis 4 Petrascu Anca. [address] [place] [address], [id number] [address] [place] [address], [id number]. tel:[phone] Family History Family Member Type Diagnosis Age At Onset Son Problem (finding) Diabetes mellitus (Caus e Of ) Son Problem (finding) Immunizations Vaccine Date Status Comments Zoster administered Source: Other R egistry Moderna Covid-19 (12y up) Booster administered Source: New Immuniza tion Record Fluzone High Dose administered Source: New Immunization Record MODERNA administered Source: New Imm unization Record Tdap administered Source: New Imm unization Record Moderna administered Source: New Imm unization Record Moderna administered Source: New Imm unization Record Pneumococcal 23 administered Source: Othe r Registry Flu high dose pfree administered Source: Other Registry Flu high dose pfree administered Source: Other Registry PCV13 administered Source: Other R egistry Payers Payer name Insurance type Covered republican ID Authoriza tion(s) Medicare NGS And Managed Care PPS [id number] EV45 [facility] Managed Care [id number] Medi Deven Wrap [id number] Medicare NGS Prime To MediCal PPS [id number] Medi Deven 2nd To Medicare MC [id number] Medicare NGS Prime To MediCal PPS [id number] Medi Deven 2nd To Medicare MC [id number] Social History Type Description Quantity Date Captured Comments Alcohol Use Details Unknown Caffeine Use Details Unknown Tobacco Use Status No Information Smoking Status No Information Sex Female Sexual Orientation Straight or heterosexual Jun Gender Identity Female Chief Complaint And Reason For Visit No Information Reason For Referral Reason For Referral No Information Plan Of Treatment Date Type Action Status Goal Dietary education for weight gain completed Referral Ordered: Ophthalmology (related to 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 Evaluate and treat ordered Referral Ordered: Referrals: Ophthalmology, system ordered Referral Referred To: Nataliya Ayala MD [address] [place] [address]
[id number] [place], [place], [id number] Ordered: Referrals: Neurology. Nataliya Ayala MD. Evaluate and treat Appointment date/timeframe: 10/13/2019 ordered Referral Ordered: Referrals: Neurology, system Appointment date/timeframe: null STAT ordered Referral Ordered: Referrals: Neurology. Consult Appointment date/timeframe: null STAT ordered Referral Ordered: Dermatology (related to History of skin cancer) ordered Referral Ordered: Referrals: Dermatology. Consult Appointment date/timeframe: STAT ordered Referral Ordered: Referrals: DM Retinopathy (Internal) Appointment date/timeframe: 12/17/2018 ordered Appointment Valorie Hernandez BOOKED Future Order: Lab Order CBC With Differential/Platelet ([id number]), Sent on: Sent Future Order: Lab Order Comp. Me tabolic Panel (14) ([id number]), Sent on: Sent Future Order: Lab Order Hemoglob in A1c ([id number]), Sent on: Sent Future Order: Lab Order Lipid Pa ramon ([id number]), Sent on: Sent Future Order: Lab Order Microalb umin, Random urine ([id number]), Sent on: Sent Future Order: Lab Order Vitamin D, 25-Hydroxy ([id number]), Sent on: Sent Future Order: Lab Order TSH+Free T4 ([id number]), Sent on: Sent Future Order: Lab Order Comp. Me tabolic Panel (14) ([id number]), Sent on: Sent Future Order: Lab Order CBC With Differential/Platelet ([id number]), Sent on: Sent Future Order: Lab Order Lipid Pa ramon ([id number]), Sent on: Sent Future Order: Lab Order Vitamin D, 25-Hydroxy ([id number]), Sent on: Sent Future Order: Lab Order TSH+Free T4 ([id number]), Sent on: Sent Future Order: Lab Order Microalb umin, Random urine ([id number]), Sent on: Sent Future Order: Lab Order Comp. Me tabolic Panel (14) ([id number]), Sent on: Sent Future Order: Lab Order CBC With Differential/Platelet ([id number]), Sent on: Sent Future Order: Lab Order Lipid Pa ramon ([id number]), Sent on: Sent Future Order: Lab Order TSH+Free T4 ([id number]), Sent on: Sent Future Order: Lab Order Vitamin D, 25-Hydroxy ([id number]), Sent on: Sent Future Order: Lab Order TSH+Free T4 ([id number]), Sent on: Sent Future Order: Lab Order Comp. Me tabolic Panel (14) ([id number]), Sent on: Sent Future Order: Lab Order CBC, Luis telet; No Differential ([id number]), Sent on: Sent Future Order: Lab Order Hemoglob in A1c ([id number]), Sent on: Sent Future Order: Lab Order Lipid Pa ramon ([id number]), Sent on: Sent Future Order: Lab Order Vitamin D, 25-Hydroxy ([id number]), Sent on: Sent Future Order: Lab Order Microalb umin, Random urine ([id number]), Sent on: Sent Future Order: Lab Order Magnesiu m, Serum ([id number]), Sent on: Sent Future Order: Lab Order CBC With Differential/Platelet ([id number]), Sent on: Sent Future Order: Lab Order Comp. Me tabolic Panel (14) ([id number]), Sent on: Sent Future Order: Lab Order Hemoglob in A1c ([id number]), Sent on: Sent Future Order: Lab Order Lipid Pa ramon ([id number]), Sent on: Sent Future Order: Lab Order Microalb umin, Random urine ([id number]), Sent on: Sent Future Order: Lab Order TSH+Free T4 ([id number]), Sent on: Sent Future Order: Lab Order Vitamin D, 25-Hydroxy ([id number]), Sent on: Sent Future Order: Lab Order Magnesiu m, Serum ([id number]), Sent on: Sent Future Order: Lab Order TSH+Free T4 ([id number]), Sent on: Sent Future Order: Lab Order Magnesiu m, Serum ([id number]), Sent on: Sent Future Order: Lab Order Comp. De tabolic Panel (14) ([id number]), Sent on: Sent Future Order: Lab Order CBC, Luis telet; No Differential ([id number]), Sent on: Sent Future Order: Lab Order Lipid Pa ramon ([id number]), Sent on: Sent Future Order: Lab Order Microalb umin, Random urine ([id number]), Sent on: Sent Future Order: Lab Order Occult B lood, [place], [place] ([id number]), Sent on: Sent Future Order: Radiology Order DX A SCAN ([id number]), Added on: New Future Order: Lab Order Occult B lood, [place], [place] ([id number]), Appointment on: , Collected on: , Sent on: Sent Future Order: Lab Order QuantiFE TED-TB Gold Plus ([id number]), Appointment on: , Sent on: Sent Future Order: Radiology Order MR I BRAIN W/O & W/DYE Bilateral brain ([id number]), Body Site: brain, Added on: New Future Order: Lab Order Comp. De tabolic Panel (14) ([id number]), Appointment on: , Collected on: , Sent on: Sent Future Order: Lab Order CBC With Differential/Platelet ([id number]), Appointment on: , Collected on: , Sent on: Sent Future Order: Lab Order Hemoglob in A1c ([id number]), Appointment on: , Collected on: , Sent on: Sent Future Order: Lab Order Lipid Pa ramon ([id number]), Appointment on: , Collected on: , Sent on: Sent Future Order: Lab Order Vitamin D, 25-Hydroxy ([id number]), Appointment on: , Collected on: , Sent on: Sent Future Order: Lab Order Thyroid Panel With TSH ([id number]), Appointment on: , Collected on: , Sent on: Sent Future Order: Radiology Order RE MOTE DX RETINAL IMAGING ([id number]), Added on: New Future Order: Radiology Order US EXAM, ABDOM, COMPLETE ([id number]), Added on: New History Of Present Illness Encounter Date Complaint History Of Prese nt Illness diabetes The problem is i mproving. Risk factors include: obesity and sedentary lifestyle. Managing with: Insulin and Fingerstick blood sugars (). Pertinent negatives include chest pain, dyspnea and hypoglycemic episodes. Additional information: had DKA due to RSV was hospitalized in ICU 05/27/24-05/31/24.. cc memory impairment The client sta nicole the symptoms are chronic and are poorly controlled. pt and her son state that pt's memory is worseshe may not be taking her insulin that regularly hypertension Comorbid conditi ons include diabetes mellitus. It is currently stable. diabetes The problem is g etting worse. Risk factors include: obesity and sedentary lifestyle. Managing with: Oral medications, Insulin and Fingerstick blood sugars (). Pertinent negatives include hypoglycemic episodes. Additional information: pt's memory is going and she thinks she took the insulin but she often does not take it; she won't let her son do it for her. flulike symptoms Pt gave verbal consent to the telephone visit. phone time @ 10 minutesDue to the documented circumstance of COVID-19 which may involve the preventing of a dhyw-bw-dmrl encounter with the patient, local or state guidelines directing that the patient remain at home, the health care practitioner has deemed the following: This telephone encounter can replace the uyht-np-jxvh encounter, this encounter will be documented in the patient's medical record and this encounter is deemed medically necessary and does not require the patient's physical presence at the facility.c/o 4-5 days of feeling sick after being sick 3 weeks ago and getting betterc/o light headed, sore throat, cough from sore throat with chest congestion and phlegm, and headachesnot sob on phone, no GI symptomsson helping her remember detailsdue to symptoms pt agreed to come into clinic for evaluation Diabetes The problem is i mproving. Risk factors include: obesity and sedentary lifestyle. Managing with: Oral medications, Insulin and Fingerstick blood sugars (). Associated symptoms include: hypoglycemic episodes. Additional information: had one episode in 60s but otherwise no lows. fall The client state s the symptoms are acute and are of new onset. 4 days ago fell backwards and landed in the bathtub; hit right rib; curtain slowed down fallfell on the chair in the bathtubpt was putting pajamas on and she was standing while she was doing itrib continues to hurt headache The symptoms are recurring. Associated symptoms include nausea. sore throat Onset: 2 Days. T he severity of the problem is moderate. The problem is improving. Associated symptoms include fever, nasal congestion and pharyngitis. diabetes Risk factors inc lude: obesity and sedentary lifestyle. Managing with: Oral medications, Insulin and Fingerstick blood sugars (). Associated symptoms include: hypoglycemic episodes - shakiness. Additional information: pt has had sugars ranging 100-500 with one outlier at 70 and she felt low. Has been on Trulicity 0.75 mg just the last couple weeks. fell pt fell recently , no LOC, witness by son Follow Up of med refills 4th covid vacc specialists specialists: Dr. 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 Cognitive Status: (Cognitive status has not changed) on 05/16/2022. The client has fallen 1 times in the last year. The fall(s) resulted in injury. Details: Broken hip. Client's activity level is moderate. Client exercises 2-3 times/week. The client has smoke detectors, carbon monoxide detectors, gas heating in the home. The client does not have firearms in the home. There is no radon in the client's home. Client reports using a seatbelt in vehicles. Client reports a Fair diet. Relevant history is negative for tobacco use, passive smoke exposure and alcohol use. cc Before we start our Telephone Visit, we need to first obtain your verbal consent to participate in a telephone consultation in connection with your health needs. Due to the documented circumstances of COVID-19, including local or state guidelines directing that you remain at home, you have elected to have a telephone visit. We want to make you aware of the potential privacy risk with utilizing any non-public facing applications. We have done every reasonable and appropriate efforts to eliminate any confidential risk associated with the phone consultation. You may withhold or withdraw consent to the Phone consultation at any time during this call, without affecting your right to future care or treatment. You may schedule a face to face appointment at any time. Do you consent to participate in this telephone medical visit? Patient gave verbal consent to the Telephone Visit. Time spent: 10 minutes headache and body aches 72 y/o f emale developed body aches, chills and headache x5 daysIs taking Tylenol for symptom reliefNo cough, fever, SOB, ROBLES, n/v or diarrheaSon sick with similar symptomsNo previous hx of COVID infectionsIs fully vaccinated diarrhea Onset: 1 week ag o. The problem is improving. Associated symptoms include nausea and vomiting. cc Before we start our Telephone Visit, we need to first obtain your verbal consent to participate in a telephone consultation in connection with your health needs. Due to the documented circumstances of COVID-19, including local or state guidelines directing that you remain at home, you have elected to have a telephone visit. We want to make you aware of the potential privacy risk with utilizing any non-public facing applications. We have done every reasonable and appropriate efforts to eliminate any confidential risk associated with the phone consultation. You may withhold or withdraw consent to the Phone consultation at any time during this call, without affecting your right to future care or treatment. You may schedule a face to face appointment at any time. Do you consent to participate in this telephone medical visit? Patient gave verbal consent to the Telephone Visit. Time spent: 10 minutes dysuria Onset: 1 day ago . Location is suprapubic. The client describes it as odorous. Denies relieving factors. Associated symptoms include urinary frequency, nausea, suprapubic pain and vomiting. Pertinent negatives include flank pain and hematuria. Additional information: Has pinkish color with wiping, no nigel blood in urine. Patient with hx of DM; fasting blood sugars have been running 150-200's. diabetes The problem is g etting worse. Risk factors include: obesity and sedentary lifestyle. Managing with: Oral medications, Insulin and Fingerstick blood sugars (). Associated symptoms include: increased fatigue. Pertinent negatives include hypoglycemic episodes. Additional information: pt has fasting sugars high 200's to 300's per son. hospital follow up Pt broke hip, was in hospital for 5 days, then in rehab for 2 weeks, now at home and doing PT outpatient.saw orthopedic surgeon Dr. Amato but has not had f/u Moderna booster cc (comments) ..New pt ref for DM.Pt has it for the last 10+ yearsDenies any acute c/o cc Before we start our Telephone Visit, we need to first obtain your verbal consent to participate in a telephone consultation in connection with your health needs. Due to the documented circumstances of COVID-19, including local or state guidelines directing that you remain at home, you have elected to have a telephone visit. We want to make you aware of the potential privacy risk with utilizing any non-public facing applications. We have done every reasonable and appropriate efforts to eliminate any confidential risk associated with the phone consultation. You may withhold or withdraw consent to the Phone consultation at any time during this call, without affecting your right to future care or treatment. You may schedule a face to face appointment at any time. Do you consent to participate in this telephone medical visit? Patient gave verbal consent to the Telephone Visit . Diabetes (follow up) (comments) Diabetes Type 2 On Jardiance, metformin and Tresiba 40 units BID. Non- Compliant with medications. Not consistently checking blood sugar at home. She is c/o of dizziness, blurred vision, fatigue, and urinary frequency. States her glucometer has not been able to read her sugar over the last week because it is to high. Diabetes (follow up) Additional information: RBS 380 A1c 14.8. hypertension Comorbid conditi ons include diabetes mellitus. It is currently improving. Associated symptoms include fatigue, nausea and vomiting. Additional information: 140s/90s at home with BP machine diabetes Risk factors inc lude: obesity and sedentary lifestyle. Managing with: Oral medications, Insulin and Fingerstick blood sugars (). Associated symptoms include: blurred vision, urinary frequency, increased fatigue and polydipsia. Pertinent negatives include hypoglycemic episodes. Additional information: sugars too high to read the past 2 days and previously in the 300s.. diabetes The problem is s table. Risk factors include: obesity and sedentary lifestyle. Managing with: Oral medications, Insulin and Fingerstick blood sugars (). Pertinent negatives include hypoglycemic episodes. Additional information: pt continues to have sugars in the high 200s. generalized weakness pt gave wayne bal consent to the telephone visit. She states that she has been having generalized fatigue and weakness for the past year. Worsening over the past few months. Denies any changes in her health history. She has not recently been ill. Denies exposure to anyone with COVID. Refuses testing at this time. She is fully vaccinated. Total telephone encounter time 10 minutes Follow Up of Hypertension Comorb id conditions include diabetes mellitus. It is currently stable. Pertinent negatives include chest pain and headache. diarrhea Onset: 2 weeks a go. The problem has resolved. Additional information: Pt states she's had the stomach flu with diarrhea and vomiting that lasted over a week and now resolved. She took lomotil and now feels constipated. Diabetes The problem is i mproving. Risk factors include: obesity and sedentary lifestyle. Managing with: Oral medications, Insulin and Fingerstick blood sugars (). Additional information: a1c-11.6 and decreased from 13.3 on 06/2020has been doing victoza daily and tresiba 25 units BID but today took 40 units of tresiba today due to sugar being 300. pt is due for fobt--kit given todayretinal/dilated eye exam pt saw opthalmologist mammogrampt declines mammo Medicare preventive Functional s tatus assessed on 12/03/2018. Cognitive status assessed on 12/03/2018. The ''Up and Go'' test took less than 30 seconds andthe client does not need help with activities of daily living. The client is at risk for falls. The client has fallen 6 times in the last year. The fall(s) resulted in injury. The client has smoke detectors, carbon monoxide detectors in the home. The client does not have firearms in the home. There is no radon in the client's home. Client reports using a seatbelt in vehicles. Client reports a high calorie diet. Client reports taking a calcium supplement. Client reports taking a vitamin D supplement. Client reports taking a multivitamin daily. Client reports taking folic acid daily. Relevant history is negative for tobacco use, passive smoke exposure and alcohol use. screenings pt may have had DEXA scan but not sure because told bones brittle. Pt falls all the time so wants to get it done.colonoscopy not desiredmammo not desiredpap out of age rangeShots: has had covid shots and PNA 2 shots.Recommended Shingrix today.Pt agreed to get tdap today.Pt has a rubber mat in shower. No throw rugs at home. diabetes The problem is s table. Risk factors include: obesity and sedentary lifestyle. Managing with: Oral medications, Insulin and Fingerstick blood sugars (). Additional information: 73, 106, 90, 95, 73, 180 and 140 (ate late and snacked in middle of night). 2 covid vaccine hypertension Comorbid conditi ons include diabetes mellitus. diabetes The problem is i mproving. Risk factors include: obesity and sedentary lifestyle. Managing with: Oral medications, Insulin and Fingerstick blood sugars (). Pertinent negatives include hypoglycemic episodes. Additional information: Fastin , 160-180s at bedtime. fastin, 110, 83, 70 and 110- today.. Follow up on lab test(s) a1c 13. 3Sodium 132Otherwise labs wnl pt is due for fobt retinal/dil ated eye exam mammogram Follow Up of Diabetes Risk facto rs include: obesity and sedentary lifestyle. Managing with: Oral medications, Insulin and Fingerstick blood sugars (). Pertinent negatives include hypoglycemic episodes. Additional information: Pt does not know how much insulin she is giving herself or what her fasting was this morning. Her son is not with her today.. pt is due for fobt retinal dil ated exam mammo falling The symptoms are reported as being severe. The symptoms occur daily. The client states the symptoms are chronic and are uncontrolled. Pt is having a lot of problems falling recently. Her son states it is because of her sugars being high. Follow Up of Diabetes The proble m is getting worse. Risk factors include: obesity and sedentary lifestyle. Patient did not use medication, return for a follow-up, or use education materials. Other compliance information: Last time pt was in the office was 01/06/2019. Last A1c 10/2018: 9.2. Managing with: Oral medications, Insulin and Fingerstick blood sugars (). Associated symptoms include: blurred vision, urinary frequency and nocturia. Pertinent negatives include hypoglycemic episodes. Additional information: many days at home reading Hi Pt is peeing a lot and can hardly make it to the bathroom in time. Pt taking up to 50 units insulin 3 times a day. She decides how much to use based on sugar numbers. Follow Up of Hypertension Comorb id conditions include diabetes mellitus. Associated symptoms include transient weakness. Dizziness Associated sympt oms include headache and incoordination. Pertinent negatives include chest pain, diplopia, ear drainage, fever, loss of consciousness and paresthesia. Diabetes Managing with: O ral medications and Insulin. Additional information: Called pt to follow up on Diabetes. Pt. states she can not recall if she picked up Diabetic medication. Son confirms yes in the background. Pt. is not checking blood sugars. Pt. has not done labs.. Diabetes (comments) Pt N/S Dr. mary ochoa's STAT appointment. Advised to reschedule with Dr. Maxwell to the documented circumstance of COVID-19 which may involve the preventing of a vwlk-fn-zrgp encounter with the patient, local or state guidelines directing that the patient remain home, the health care practitioner has deemed the following:This telephone encounter can replace the fkze-lq-sxrx encounter, this encounter will be documented in the patient's medical record and this encounter is deemed medically necessary and does not require the patient's physical presence at the facility."Before we start our Telephone Visit, we need to first obtain your verbal consent. We want to make you aware of the potential privacy risk. You may withhold or withdraw consent to at any time during this call, and you may schedule a face to face appointment. Do you consent to participate in this telephone medical visit? yes 10 minute telephone call Thyroid problems Presenting symp toms do not include dysphagia, enlarged thyroid and fatigue. Risk factors include female. Additional information: Request Levothyroxine 100 mcg once a day; has not had recent labs. Pt request 90 day supply-declined until pt does labs. Diabetes Managing with: O ral medications and Insulin. Pertinent negatives include chest pain, dyspnea, weight gain and weight loss. Additional information: Pt currently needing refills of Tresiba. Not been in since 12/2018- states she need multiple refills. Pt states she has been loosing her balance and falling- not evaluated by provider or ER. Diabetes (comments) Due to the d ocumented circumstance of COVID-19 which may involve the preventing of a falk-ww-niyu encounter with the patient, local or state guidelines directing that the patient remain home, the health care practitioner has deemed the following:This telephone encounter can replace the cbuj-rz-sxnv encounter, this encounter will be documented in the patient's medical record and this encounter is deemed medically necessary and does not require the patient's physical presence at the facility. Before we start our Telephone Visit, we need to first obtain your verbal consent. We want to make you aware of the potential privacy risk. You may withhold or withdraw consent to at any time during this call, and you may schedule a face to face appointment. Do you consent to participate in this telephone medical visit? yes 10 minute telephone call Headache Pain scale: 7 . cough The patient desc ribes the cough as non-productive. It occurs persistently. The problem has become gradually worse. Context: allergies. Associated symptoms include cough, nasal congestion, post-nasal drainage, rhinitis and rhinorrhea. Pertinent negatives include chills, dyspnea, dyspnea on exertion, epistaxis, fatigue, fever, heartburn, hemoptysis, hoarseness, night sweats, pleuritic pain, sinus pressure, sore throat, weight loss and wheezing. F/U Diabetes Fasting Glucose 232Started Tresiba 10 units once a day; changing from Basaglar 50 units Currently using VictozaCurrently out of testing supplies at homePt complaining of headache; states she normally has headaches but headache is differentFacial asymmetry- states she had that for couple days Diabetes Education Pt. 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, states eats once a day and will sometimes skip eating for a day, will also not inject Basaglar if she does not eat or if BG is at normal range, is not sure how frequently that is, FBG ranging 90-150, has had one at 200, evening BG ranging 150-200, reviewed last noted HbA1c of 9.2, states has never had it that high, is aware of recommended range, also discussed the importance of calorie intake and risk for hypoglycemia episodes and taking medications as ordered, suggested to keep diary of BG and when / if injecting Insulin, verbalized understanding, reviewed carbohydrates, non-starchy vegetables, plate method, recommended servings, states drinks water and unsweetened tea, does use sweet and low as a sweetener at times, gradually increasing activity level by taking a 5-10 minute walk 2-3 times a week, handouts reviewed and provided, will follow up as needed. f/U Diabetes Blood sugar Fast ing 90-210At bedtime 146-200Forgot logsHas not followed up regarding assistance for foodHas never met w/ Health EducationHx skin cancer-- was being treated by dermatology Pending records from previously facility Follow Up of hypertension Pertin ent negatives include chest pain, diaphoresis, dyspnea, fatigue and irregular heartbeat/palpitations. Additional information: Pt reports doing well on HTN medication; does not have blood pressure machine to check blood pressure at home diabetes Managing with: Jorge mccabe. Pertinent negatives include chest pain and dyspnea. Additional information: Max: 300's ? Min: 90 Did not bring logs. 150 at times after meals. States she did not have a pen to write blood sugars. Has not had money for groceries recently. Follow Up of lab results Labs re viewed in detailType 2 DM; Basaglar 50 units twice subq and VictozaAnxiety - stopped Lorazepam 1 mg 1/2 pill all together; pt was not able to make it in last week. She stopped her medication. Denies side effects. States she has always been anxious. 12/09/18 has SWEATER OPERATOR appointmentStopped Losartan on her own due to commercial est. care Establish Care30 0 mg three times a day; Neuropathy pain Dr. Tavaresloxetine DR 60 mg 1 capsule a day Tizanidine 4 mg 1/2 tablet twice a day; muscle spasmsHydrocodone/ Acetaminophen 10-325 mg one every 6 hours; back painLorazepam 1 mg a night for anxiety Pravastatin 20 mg one everyday; cholesterolOmeprazole 40 mg capsule once a day- GastritisLevothyroxine 100 mcg once a day - HypothyroidismLosartan 100 mg - HTNMigraine H/A Ibuprofen 200 mg twoThere are times when she wakes up with H/A goes to sleep with headacheHas not discussed with Pain ManagementHx TumorMRI - need to request recordsC/O poor circulationInsomnia takes Benadryl 50 mg QHSRUQ painProlapse Vagina; total hysterectomy-- was going to having surgery; [facility] Victoza states using high dose; could not tell me and does not use as directedBasaglar 50 units twice a daySupplements BiotinIBS stool softner poss prolapse hx of hysterecto my 1986 / anterior bladder repairNVD x 2 poss yeast inf urinalysis negat shala leuk/ nitrates negative -- positive glucose 500RBS -- High PCP -- Nilay Simon last seen 2 days ago states her last hgba1c was elevated and pt states very stressed / lost family memver son and mother and financially stressed pt is currently on insulin and undergoing labs for further testing with Dr. Denson liver problems / abdominal hernia/ hx of brain tumor benign ? / hysterectomy menorrhagia - total hyst Functional Status Date Functional Assessmen t No Information Instructions Date Instruction Additional Infor mation will get labs continue levo Rela alis to Hypothyroidism (acquired) discussed importance of getting pt's sugars into better controlwill increase mounjaro to 5 mg weekly Related to Type 2 diabetes mellitus with hyperglycemia, with long-term current use of insulin continue lisinopril Related to E ssential hypertension will checkadvised pt intermittent dizziness could be due to electrolyte problems and to get labs Related to Hypomagnesemia continue current med spermissive hypertension given dizziness Related to Essential hypertension start mounjaro as pt has been off the trulicity for months anywayasked that pt's son take over the insulin injections and the medicationspt and her son agreed to this, although pt was reluctantasked pt to get labs done as I have no labs on her for over 2 yearsshe agreedadvised she does not have to be fasting as she does not want to do thisf/u after labs in about 1 mo. ER precautions given Related to Type 2 diabetes mellitus with hyperglycemia, with long-term current use of insulin amoxicillin (allergy to zithromycin) due to severe sinus pain for weeks Pt advised to quarantine with household for at least 5 days from onset of symptoms and if symptoms resolve day 6-10 may go out with a snug fitting mask. OTC medications for any symptoms including tylenol for fevers or body aches. ER precautions given. 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 Increase fluid intake and rest. ER precautions given and f/u for any continued or worsening symptoms. May use OTC cough medication per instructions on med during day and reserve promethazine-DM for nights. Caution contagious. Related to Influenza B discussed iwth pt th ere is a possibility for a rib fracture based on hx and examadvised it would not change course of treatment. Pt does not want to get x-rays. Advised to take deep breaths to avoid pneumonia. Related to Costochondral chest pain cont. current medsget labs Relat ed to Essential hypertension get labs Related to Vitam in D deficiency increase trulicity t o 3 mgcontinue other meds Related to Type 2 diabetes mellitus with hyperglycemia, with long-term current use of insulin go get labs donerefill sent Rela alis to Essential hypertension go get labs donerefi ll sent but pt advised I will not keep refilling if she does not get labs done Related to Acquired hypothyroidism Discussed with son annika escobar. I told him I do not believe that pt is taking her insulin as prescribed.He admitted that he does not watch her give herself the evening insulin as he goes to sleep early.Asked him to have her administer it in front of him prior to going to bed, even if its a bit earlier.increase trulicity to 1.5 weekly Related to Type 2 diabetes mellitus with hyperglycemia, with long-term current use of insulin Pt did not want to c ome to the office today but wanted to get tested for covid due to diarrhea.I pointed out to her and her son that she has IBS and that I really want her to come to the office. Pt declined and requested covid testing.covid test ordered and scheduled Related to Irritable bowel syndrome with both constipation and diarrhea Advised pt go get te sted and remain quarantined until results are back. Tylenol as needed for aches and pains.Testing info given and appt. scheduled.ED precautions given. Related to Encounter for screening for viral disease Advised pt go get te sted and remain quarantined until results are back. Tylenol as needed for aches and pains.Testing info given and appt. scheduled.ED precautions given. Related to Screening for viral disease Result back after I was out of the office.Paxlovid sent in to pharmacy.Called pt first thing on 06/15 and discussed treatment. Pt will take less [place] and take Paxlovid and drink plenty of water. Related to COVID-19 will get labs as pt is overduerefilled diabetic medsadvised pt she needs to come in at least every 3 mos. but every 1 mo. until her diabetes is back under control Related to Type 2 diabetes mellitus with hyperglycemia, with long-term current use of insulin Advised vaccines rec ommended.All preventative recommendations for which pt is due discussed and recommended.Discussed Advanced Directive and recommended patient fill it out with family member and bring us a copy for our records. Form given to pt. Advised yearly wellness visit. Related to Medicare annual wellness visit, subsequent A1c not at goaladvis ed taking trulicity weekly for now and will likely increase in 1 mo. if no more lows. Related to Type 2 diabetes mellitus with hyperglycemia, with long-term current use of insulin UA negativeadvised m ore hydrationwill get labs (printed labs from last visit) Related to Frequent falls Continue with Tyleno l prn for headaches and body achesRestStay hydratedRTC if symptoms worsen or do not improvePatient verbalized understanding and agreed with plan Related to Generalized body aches Advised pt go get te sted and remain quarantined until results are back. Tylenol as needed for aches and pains.Testing info given and appt. scheduled.ED precautions given. Related to Screening for viral disease pt sent to get covid testing Rel ated to Dizziness cont. current med an d be seen in office as soon as diarrhea resolved. Related to Essential (primary) hypertension Sugars have been 150 , 171, [place] fasting.Advised pt to be seen in office. Related to Type 2 diabetes mellitus with hyperglycemia, with long-term current use of insulin Will rx MacrobidDrin k plenty of fluidsEmpty bladder frequentlyDiscussed hygieneER symptoms discussed, if fever develops (temp >99.9 F), chills, rigors, or acute mental status changes, abdominal ennis, flank pain with pyuria.RTC if symptoms persist or do not improvePatient verbalized understanding and agreed with plan Related to Dysuria Will schedule FLU/CO VID testingER precautions reviewed Related to Encounter for screening for other viral diseases magnesium was low in the hospital.Will recheck on lab work. Related to Hypomagnesemia will recheckcont. current med fo r now Related to Acquired hypothyroidism asked pt and her son to make f/u with ortho surgeon. Related to Status post left hip replacement Start trulicity.Incr ease insulin by 5 units daily.F/U in 2 weeks with sugar log. Stressed need to follow up and take insulin and other meds daily for healing. Related to Type 2 diabetes mellitus with hyperglycemia, with long-term current use of insulin Uncontrolled Diabete s. Patient at high risk for DKA. Red flag s/s discussed. Advised patient to go to the Emergency department for further f/u. Patient and son agree with the plan of care. Related to Type 2 diabetes mellitus with hyperglycemia Dietary education for weight gai n Related to Body mass index [BMI] 19.9 or less, adult Asked pt to make krysta t. for tomorrow as I am really concerned she could be going into DKA. Talked to pt's son Carlos and gave ED precautions as pt declines going to the ED right now.Advised Carlos to give pt 40 units of insulin tonight and 40 in the morning if sugar is not low and pt will come in to clinic at 1:30 pm tomorrow and see my colleague, ALLYSON Ruiz. Increase Jardiance to 25 mg daily.Keep appt. with Dr. Euceda on 06/04/21. Related to Type 2 diabetes mellitus with hyperglycemia, with long-term current use of insulin Increase insulin by 5 units.Start Jardiance 10 mg daily. Keep sugar log at least fasting sugars.f/u in 1 mo. Related to Type 2 diabetes mellitus with hyperglycemia, with long-term current use of insulin Due to the documente d circumstance of COVID-19 which may involve the preventing of a [id number] encounter with the patient, local or state guidelines directing that the patient remain home, the health care practitioner has deemed the following:This telephone encounter can replace the [id number] encounter, this encounter will be documented in the patient's medical record and this encounter is deemed medically necessary and does not require the patient's physical presence at the facility. Related to Chronic fatigue Continue levo. Related to Hypot hyroidism (acquired) Kit given. Related to Scree gloria for colon cancer UA checked. Glucosur ia likely causing burning. Advised better control of diabetes. Related to Burning with urination Continue omeprazole. Related to GERD without esophagitis Increase insulin to 25 units two times a day and then to 30 twice a day if no lows. F/U in 1 month with sugar log. Related to Type 2 diabetes mellitus with hyperglycemia, with long-term current use of insulin Pt has IBS. Will giv e rx for Lomotil for rare use. Advised trying Miralax if constipated. Related to Functional diarrhea Will ask pt's son ab out when pt last saw simulation specialist. 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 Updated problem list. Related to Essential (primary) hypertension Continue current med s. Updated problem list. Related to Type 2 diabetes mellitus with hyperglycemia, with long-term current use of insulin Advised pt use a can e. Advised walker with a seat so she can walk more. Pt will think about it. Related to Frequent falls Advised pt to f/u wi th her son for her diabetes. Related to Memory impairment of gradual onset Continue current med s. Updated problem list. Related to Irritable bowel syndrome with both constipation and diarrhea DEXA scan ordered. Related to Sc reening for osteoporosis Tdap given today. Related to Und erimmunized Encouraged healthy e ating (more veggies).Advised walking with good walking shoes and have a good cane with her. Related to Medicare annual wellness visit, initial Decrease tresiba ins ulin to 23 units 2 times a day (Pt had been taking 20 BID).Advised she continue victoza.F/U in 2-3 weeks with glucose log, earlier if sugars start getting lower. Encouraged pt to keep up the good work.A1c due on 10/05/20. Related to Type 2 diabetes mellitus with hyperglycemia, with long-term current use of insulin BP cuff ordered. Related to Esse ntial hypertension Continue good curren t lifestyle changes.Pt had sugar log with her. Sugars are trending down.F/U in 2 weeks with sugar log. Related to Type 2 diabetes mellitus with hyperglycemia, with long-term current use of insulin Continue current meds. Related t o Hypothyroidism (acquired) Pt has been taking 2 5 units of Tresiba BID.Asked pt to decrease to 20 units BID to decrease risk of hypoglycemia.Pt and her son verbalized understanding with new plan.F/U in 2 weeks with sugar log. Refilled test strips at pt request.Continue all other meds. Related to Type 2 diabetes mellitus with hyperglycemia, with long-term current use of insulin Your diabetes is wayne y uncontrolled. Your A1c is 13.3. It should be less than 8.0. Please check your sugars first thing in the morning (fasting) and 2 hours after eating.Please continue taking insulin two times a day. I want to speak to your son tomorrow to find out exactly how much you have been taking so we can slowly increase this safely. I want to follow up with you in one week to adjust your insulin regimen. Continue taking Victoza. If you have not started taking it, start taking Victoza. It is a shot daily. Take metformin 1000 mg two times a day.Start walking daily to increase your physical activity.GO TO GET YOUR COVID VACCINE TOMORROW AT [address] AT 2:00 PM. Related to Type 2 diabetes mellitus with hyperglycemia, with long-term current use of insulin Stressed to pt that her BP is not controlled and she is at high risk for heart attack and stroke.Will increase lisinopril to 20 mg every morning.Return in 1 week. Related to Essential hypertension Labs ordered.Statin sent. Relate d to Hyperlipidemia, unspecified hyperlipidemia type Advised pt that I ca nnot help get her diabetes under control if she does not come to the office. I asked her to keep a fasting sugar log.I asked pt to go to the lab to get blood work.Refilled medications but advised pt no more refills will be sent if she does not return for appts. Pt and her son voiced understanding.ED precautions given. Related to Type 2 diabetes mellitus with hyperglycemia, with long-term current use of insulin Advised pt that this is very much likely due to the high sugars but we need to address this better at follow up appt. Asked pt to return in 1 week. Related to Frequent falls Refilled thyroid med but advised no refills will be sent without blood work and showing up to follow up appt. Related to Hypothyroidism (acquired) Labs order Related to Jn castro for colorectal cancer MRI Brain / HeadNeur ology referralAdvised to be evaluated to go to ERRTC in 1 week or sooner as needed Related to Memory loss Labs order Related to Jn castro-pulmonary TB Encourage to check b lood sugarsLab work orderMRI Brain / HeadNeurology referralAdvised to be evaluated to go to ERRTC in 1 week or sooner as needed Related to Shakiness Metformin 500 mg twi ce a dayTresiba use as directedThe risks, benefits and side effects of treatment were discussed with the patient.DM dietEncourage to check blood sugarsRTC in 1 week or sooner as needed Related to Type 2 diabetes mellitus with other specified complication, with long-term current use of insulin Levothyroxine 100 mc g once a day only 30 day supplyThe risks, benefits and side effects of treatment were discussed with the patient.Lab work orderedRTC in 1 week or sooner as needed Related to Hyperthyroidism MRI Brain / HeadNeur ology referralAdvised to be evaluated to go to ERRTC in 1 week or sooner as needed Related to Frequent falls Stand up slowly and give your body time to adapt. This is especially important when you get out of bed in the morning. Start by sitting up and waiting a moment. Then swing your legs over the side of the bed and wait some more. When you do stand up, make sure you have something to hold onto in case you start to feel dizzy.MRI Brain/HeadNeurology referral r/s appt- pt verbalize understandingAdvised to go to ER for further evaluationRTC in 1 week or sooner as needed Related to Dizziness Metformin 500 mg twi ce a dayTresiba use as directedThe risks, benefits and side effects of treatment were discussed with the patient.DM dietEncourage to check blood sugarsRTC in 1 week or sooner as needed Related to Type 2 diabetes mellitus with hyperglycemia, with long-term current use of insulin Neurology referralD/ t Facial Asymmetry ER NowRTC after ER Related to Nonintractable episodic headache, unspecified headache type ER Now; pt. verbaliz ed [facility] will head to ER NowRTC after ER Related to Facial asymmetry Continue w/Victoza a s directedContinue w/Tresiba 10 units once a dayPrescription given for test strips and lancetsCheck blood sugar three a dayBring Logs at every visitHgb A1C goal <7%RTC after ER Related to Type 2 diabetes mellitus with hyperglycemia, with long-term current use of insulin EKG showed sinus tac hycardiacontinue to monitor Related to Tachycardia hgba1c= 9.2 11/18/18 RIs scan done todayINcrease Tresiba to 10 units. continue Victoza once a day metformin 1 tablet by mouth 2x daily Due to other chronic medical illnesses and co-morbidities, the goal for hemoglobin a1c is 8 and less. Blood sugar in the morning between 80-130. Advised therapeutic lifestyle changes. Low caloric, low carbohydrate diet. Exercise at least 30 minutes per day 3-5X/week, that the patient can tolerate. Blood sugar check pre meals at least 2X daily. Record in blood sugar log, and bring to the clinic on next visit. Related to Type 2 diabetes mellitus with hyperglycemia, with long-term current use of insulin Use fluticasone nasa l spray 1 spray on each nostril 2x daily Related to Acute nasopharyngitis Take 1 tablet every 12 hours with food for 5 daysSide effect is increased blood sugar, increased appetite, water retention, increased weight and possible confusion Use albuterol 1-2 puffs 3-4x daily as needed for wheezing.Side edffect is increased heart rate, palpitation and hand tremorsUse advair 1 puff 2x dailyRinse throat every time after use.- to prevent sore throat Take Promethazine DM 5 milliliter or 1 teaspoon by mouth 3x daily. The side effect of the medication is dizziness, drowsiness and sleepiness. Do not operate any machineries. Plan of management, medication use, side effects, complications, and options to treatment were discussed and patient verbalized understanding and agree with the plan of care. Follow up as scheduled in 1-2 weeks or sooner with PCP if the signs and symptoms persist or worsen. Related to Acute bronchitis due to other specified organisms Hgb A1C 9.2 11/18/18C ontinue with Basaglar 50 units twice a dayVictoza use as directedBring in blood sugar logs; gave pt 2 pens to write down blood sugars at last visitDM Diet; Health Education appt needed- please scheduleHgb A1C goal <7%RTC in 4 week or sooner as needed Related to Type 2 diabetes mellitus with hyperglycemia, with long-term current use of insulin Pending records STAT dermatology referral Related to History of skin cancer Lisinopril [address] ER precautionsRTC in 1 week or sooner as needed Related to Essential hypertension RBS today 332 in off iceHgb A1C 9.2 11/18/18Continue with Basaglar 50 units twice a dayVictoza use as directedBring in blood sugar logs; gave pt 2 pens to write down blood sugarsDM DietHgb A1C goal <7%RTC in 1 week or sooner as needed Related to Type 2 diabetes mellitus with hyperglycemia, with long-term current use of insulin Pt. stopped Lasartan 100 mg on her due to commercial she sawStarted Lisinopril 10 mg Check blood pressure and bring in logsStrict ER precautionsRTC in 1 week or sooner as needed Related to Essential hypertension Hgb A1C 9.2 11/18/18C ontinue with Basaglar 50 units twice a dayVictoza use as directedBring in blood sugar logsDM DietHgb A1C goal <7%RTC in 1 week or sooner as needed Related to Type 2 diabetes mellitus with hyperglycemia, with long-term current use of insulin Vitamin D, 25-Hydrox y 26.5 ng/mL L 30.0-100.0 Vitamin D once a day X 3 months Related to Vitamin D deficiency 11/18/18Free Thyroxin e Index 1.8 1.2-4.9 T3 Uptake 24 % 24-39 Thyroxine (T4) 7.7 ug/dL 4.5-12.0 TSH 0.451 uIU/mL 0.450-4.500 Continue Levothyroxine 100 mcg once a dayRepeat lab in 6 weeks Related to Hyperthyroidism Decrease 1/2 tablet once at bedtime; pt. agreeable- has enough for 8 days-- may take 1 mg if absolutely neededDenies SI and HISchedule w/LCSWDiscussed symptoms of Benzo withdrawalER precautionsRTC in 1 week or sooner as needed Related to Anxiety Advised the patient to eat a diet low in fat, low in cholesterol and low in carbohydrates. Related to Hyperlipidemia, unspecified hyperlipidemia type Continue Levothyroxi ne 100 mcg once a day Related to Hyperthyroidism Continue w/Victoza a nd Basaglar use as directedDM retinal examDM dietHgb A1C orderedRTC in 1 week or sooner as needed Related to Type 2 diabetes mellitus with hyperglycemia, with long-term current use of insulin Avoid provocative fo ods such as citrus, spicy, dean, caffeine, coffee, peppermint, chocolate and similar type foods. Lab work upUltrasound orderRTC in 1 week or sooner as needed Related to Right upper quadrant pain Fasting Labs: Please no food or drink, except water, for 10-12 hours prior to having your labwork. Always return to the clinic for review of the labwork. Related to Screening, deficiency anemia, iron Fasting Labs: Please no food or drink, except water, for 10-12 hours prior to having your labwork. Always return to the clinic for review of the labwork. Related to Encounter for vitamin deficiency screening clotrimazole cream i nsert intravaginally at bedtime x 5 nights pt verb understanding advised to have BS under good control - aware of importance Related to Dysuria pt was encouraged to follow up with dr simon today after her visit with Me today - regarding her BS levels - and medication for bs control she states she will go to his office after this appt dietary advise was discussed to take medication as prescribed Related to Uncontrolled diabetes mellitus Assessments Type Assessment Date No Information Patient Care Teams Name Effective Dates (start - stop) Status Members No Information
== END 2024-09-17 11:29 | disposition home or self-care (01) ==
LOC: HO.HSMS 10:09
PROVIDERS: Visit Provider Nurse Practitioner Family
DX: Z86.73 Personal history of transient ischemic attack (TIA), and cerebral infarction without residual deficits (principal); G47.33 Obstructive sleep apnea (adult) (pediatric); G47.9 Sleep disorder, unspecified; R41.89 Other symptoms and signs involving cognitive functions and awareness
CPT/HCPCS: 99214

== ENCOUNTER → 2024-09-17 10:09 | Outpatient (BNVA) | payer MEDICARE, OTHER, SELFPAY | PROVIDERS: Visit Provider Nurse Practitioner Family | DX: G47.33 Obstructive sleep apnea (adult) (pediatric) (principal); D47.9 Neoplasm of uncertain behavior of lymphoid, hematopoietic and related tissue, unspecified; R41.89 Other symptoms and signs involving cognitive functions and awareness; Z86.73 Personal history of transient ischemic attack (TIA), and cerebral infarction without residual deficits | CPT/HCPCS: 99212 ==